=== PATIENT | female | born 1945 | race Caucasian/White ===

== ENCOUNTER 2019-01-22 11:34 | Emergency (ER) | payer OTHER ==
[~2019-01-22] VITALS: Ht 165.1 cm; Wt 52.2 kg
[2019-01-22] MEDS ORDERED: TRESIBA100 UNIT/1 PO (11:52)
[2019-01-22] MEDS ORDERED: IBUPROFEN 200200 M1 PO (11:52)
[2019-01-22] MEDS ORDERED: NOVA MAX BLOOD1 EACH PO (11:52)
[2019-01-22] MEDS ORDERED: LEVOXYL88 MCG PO (11:53)
[2019-01-22] MEDS ORDERED: LIPITOR40 MG PO (11:53)
[2019-01-22] MEDS ORDERED: CELEXA20 MG PO (11:53)
[2019-01-22] MEDS ORDERED: ASPIR 8181 MG PO (11:53)
[2019-01-22] MEDS ORDERED: VITAMINC500 PO (11:54)
[2019-01-22] MEDS ORDERED: VITAMIN B-12500 MCG PO (11:54)
[2019-01-22] MEDS ORDERED: HYDROCHLOROTHIA25 M1 PO (11:54)
[2019-01-22] MEDS ORDERED: POTASSIUM99 MG PO (11:55)
[2019-01-22] MEDS ORDERED: LYSINE500 MG PO (11:55)
[2019-01-22 13:29] LABS: ABSOLUTE EOSINOPHILS 0.1 thou/uL (0.0-0.7); ABSOLUTE LYMPHOCYTES 1.4 thou/uL (0.8-5.3); ABSOLUTE MONOCYTES 0.6 thou/uL (0.0-1.2); ABSOLUTE NEUTROPHILS 4.7 thou/uL (1.6-8.1); BASOPHILS 0.7 %; HEMATOCRIT 40.7 % (37.0-47.0); HEMOGLOBIN 13.8 gm/dL (12.0-15.0); LYMPHOCYTES 20.2 %; MCH 30.8 pg (26.0-34.0); MCV 90.7 fL (80.0-100.0); MONOCYTES 8.9 %; MPV 8.2 fl. (7.2-11.1); NUCLEATED RBCS 0 /100WBC; PLATELET COUNT* 236 thou/uL (150-400); POLYS 69.2 %; RBC 4.49 mil/uL (4.20-5.00); RDW-CV 13.5 % (10.5-14.5); WBC 6.7 thou/uL (4.0-11.0)
[2019-01-22 13:37] LABS: ANION GAP 10 mmol/L (7-16); BUN 24 mg/dL (7-18); CALCIUM 9.8 mg/dL (8.5-10.1); CHLORIDE 102 mmol/L (98-107); CO2 27 mmol/L (21-32); CREATININE 1.3 mg/dL (0.6-1.3); GLUCOSE 247 mg/dL (70-99); POTASSIUM 4.2 mmol/L (3.5-5.1); SODIUM 139 mmol/L (136-145)
[2019-01-22 13:46] LABS: ALBUMIN 3.5 g/dL (3.4-5.0); ALKALINE PHOSPHATASE 83 U/L (46-116); SGOT 22 U/L (15-37); SGPT 28 U/L (30-65); TOTAL BILIRUBIN 0.4 mg/dL (<0.1-1.0); TOTAL PROTEIN 6.8 g/dL (6.4-8.2); TROPONIN-I LEVEL <0.06 ng/mL (<0.06)
[2019-01-22 14:50] LABS: URINE BILIRUBIN NEGATIVE (Negative); URINE BLOOD NEGATIVE (Negative); URINE CLARITY CLEAR; URINE COLOR YELLOW; URINE GLUCOSE-RANDOM 1+ (Negative); URINE KETONES TRACE (Negative); URINE LEUKOCYTES-REFLEX NEGATIVE (Negative); URINE NITRITE-REFLEX NEGATIVE (Negative); URINE PROTEIN NEGATIVE (Negative); URINE UROBILINOGEN 0.2 E.U./dl (0.2-1.0)
[2019-01-22] MEDS ORDERED: NORCO 5-325 TA1 EAC1 PO (14:58)
[2019-01-22 15:08] VITALS: BP 138/68
--- NOTE | 2019-01-23 11:06 | EKG ---
[place] [address] ELECTROCARDIOGRAM REPORT Name: JUANCARLOSAICAROLYN Angelica Room: [facility]#: [id number] Admission: 01/22/19 Attend Phys: Discharge: 01/22/19 Date of : 41 Report #: [id number] THIS REPORT FOR: //name// [facility] ED Test Date: 2019-01-22 Test Time: 11:48:42 Pat Name: CAROLYN ALVARENGA Department: Room: Gender: F Communications Technician: ELLIE : 1945 Requested By: Order Number: [id number] Hans MD: Gonzalo Montilla Measurements Intervals [place] Rate: 93 P: 69 [place]: 117 QRS: 75 QRSD: 80 T: 71 QT: 351 QTc: 437 Interpretive Statements Sinus rhythm Borderline short [place] interval No previous ECG available for comparison Electronically Signed On 01-23-2019 11:06:36 CDT by Gonzalo Montilla [email or web address] <ELECTRONICALLY SIGNED> By: Gonzalo Montilla MD, [facility] 01/23/19 1106 1148 [id number] Gonzalo Montilla MD, FACC /EPI
== END 2019-01-22 15:09 | disposition home or self-care (01) ==
LOC: M.ERS 11:34
PROVIDERS: Physician Assistant
DX: S09.8XXA Other specified injuries of head, initial encounter (principal); E11.65 Type 2 diabetes mellitus with hyperglycemia; R07.81 Pleurodynia; E03.9 Hypothyroidism, unspecified; Z90.710 Acquired absence of both cervix and uterus; Z79.4 Long term (current) use of insulin; W18.39XA Other fall on same level, initial encounter; Y93.89 Activity, other specified; Y92.89 Other specified places as the place of occurrence of the external cause; Y99.8 Other external cause status